=== PATIENT | female | born 1965 | race Caucasian/White ===

== ENCOUNTER 2017-06-21 18:19 | Emergency (ER) | payer OTHER ==
[~2017-06-21] VITALS: Ht 165.1 cm; Wt 131.1 kg
--- NOTE | ~2017-06-21 | US85 ---
[facility] A Service of [facility] RADIOLOGY TEXT RESULTS PATIENT: JEFFY ARTHUR LOCATION: [facility] : 63 UNIT #: [id number] AGE: [address]: Yg Ribeiro MD SEX: F ORDER DR: [id number] [facility] [address] [place], [place] [address] [id number] E MR#: [id number] Acc #: [id number] NAME: JEFFY ARTHUR : 1965 SEX: F STUDY DATE/TIME: 06/21/2017 20:17 UNIT: [facility] ROOM: STUDY DESCRIPTION: [facility] [employer] Attending Physician: Yg Ribeiro M.D. Ordering Physician: Yg Ribeiro M.D. Primary Care Physician: Primary Care Physician No MEDICAL IMAGING REPORT This report is preliminary unless electronic signature is present EXAM Ultrasound lower extremity veins unilateral or limited study. HISTORY Left lower extremity pain/swelling with short of air for 2 days. No blood thinners. Patient diabetic with hypertension. TECHNIQUE Venous ultrasound examination of the left lower extremity was performed using grayscale, spectral Doppler and color flow Doppler imaging. FINDINGS The examination is negative. There is no evidence of left lower extremity deep venous thrombus from the groin to the lower calf. Visualized greater saphenous vein is also patent. IMPRESSION Negative examination. No evidence of left lower extremity deep venous thrombosis. Dictated by... Jean Baarjas M.D. THIS IS AN ELECTRONICALLY VERIFIED REPORT Jean Barajas M.D. at 06/25/2017 10:43 AM FRIDA/shayy TD: 06/22/2017 00:16 JOB #: [id number] MEDICAL IMAGING REPORT Page 1 of 1 COPY
--- NOTE | ~2017-06-21 | EKG ---
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
[~2017-06-21 18:19] MED LIST: ACCUPRIL PO; ACETAMINOPHEN PO; ADVAIR 250-501 EAC1 IH; ADVAIR 2501 DISK W/D PO; ALBUTEROL MININEB NEB; ALBUTEROL17 GM INH; AMLODIPINE BESYL5 MG PO; BACLOFEN10 MG PO; BACTRIM DS TABL1 TA1 PO; CELEXA PO; CELEXA20 MG PO; COREG3.125 MG PO; DIFLUCAN PO; DUONEB 2.5-0.5 M3 ML NEB; FUROSEMIDE40 MG PO; GABAPENTIN300 M2 PO; GLUCOTROL PO; HUMALOG; HUMALOG100 U/ML SUBQ; HYDRALAZINE HCL25 MG PO; KLONOPIN1 MG PO; LASIX PO; LASIX20 MG PO; LEVAQUIN P500 MG/100 IV; LEVAQUIN PO; LEVAQUIN750 MG PO; LEVEMIR; LEVEMIR SUBQ; LEVEMIR100 UNITS/ SUBQ; LISINOPRIL PO; LORTAB 10-5001 EACH PO; LORTAB 10/500 T1 TAB PO; LOVENOX30 MG/0.3 INJ; MAXZIDE 75/50 T1 TAB PO; MEDROL DOSEPAK4 MG PO; METFORMIN PO; NAPROSYN375 MG PO; NEURONTIN300 MG PO; NO HOME MEDICATIONS; NO MEDICATIONS; NORCO 10/325 TA1 TAB PO; NORVASC PO; NOVOLOG100 UNITS/ SUBQ; OXYGEN 2LPM; PANTOPRAZOLE SO40 MG PO; PHOSLO667 MG PO; PREDNISONE PO; PRENATAL1 TA1 PO; PRILOSEC PO; PROAIR HFA8.5 GM IH; PROTONIX PO; PYRIDIUM100 MG PO; ROBITUSSIN A-C S5 ML PO; SOLU-MEDRO40 MG/1 ML IV; SYMBICORT INH; ZITHROMAX500 MG PO; ZOFRAN4 MG/5 ML IV
[2017-06-21 20:55] LABS: BASOPHIL% 0.7 % (0-2.5); EOSINOPHIL# 0.1 X10e3 (0-0.7); EOSINOPHIL% 2.3 % (0.0-7.0); HEMATOCRIT 46.8 % (35.0-45.0); HEMOGLOBIN 15.8 gm/dL (12.0-16.0); LYMPHOCYTE# 1.6 X10e3 (1.0-3.5); LYMPHOCYTE% 25.6 % (17.0-45.0); MEAN CELL VOLUME 103.6 FL (83-96); MEAN CORPUSCULAR HGB CONC 33.8 g/dL (30-36); MEAN PLATELET VOLUME 10.1 FL (6.5-11.5); MONOCYTE% 15.6 % (3.0-12.0); NEUTROPHIL# 3.5 X10e3 (1.5-7.1); NEUTROPHIL% 55.8 % (40-75); RED BLOOD COUNT 4.52 X10e (3.90-5.30); RED CELL DISTRIBUTION WIDTH 15.3 % (11.0-15.5); WHITE BLOOD COUNT 6.2 X10e3 (4.0-10.5)
[2017-06-21 21:11] LABS: DIFF IND YES; PLATELET COUNT 78 X10e3 (140-420)
[2017-06-21 21:13] LABS: PLATELET ESTIMATE NORMAL (NORMAL)
[2017-06-21 21:20] LABS: ALBUMIN SERUM 2.8 g/dL (3.5-5.0); BILIRUBIN, DIRECT 0.5 mg/dL (0.0-0.2); BILIRUBIN,INDIRECT 1.3 mg/dL (0.0-0.9); BILIRUBIN,TOTAL 1.8 mg/dL (0.2-2.0); BUN/CREATININE RATIO 11.11; CALCIUM SERUM 8.6 mg/dL (8.4-10.2); CREATININE SERUM 0.9 mg/dL (0.6-1.4); GLOM FILT RATE Estimated 73.6 mL/min (>60); POTASSIUM 3.8 mmol/L (3.5-5.1); PROTEIN TOTAL SERUM 6.7 g/dL (6.0-8.3)
[2017-06-21 21:32] LABS: POC - CKMB <1.0 ng/mL (0.0-7.9); POC - TROPONIN <0.05 ng/mL (<=0.05)
[2017-06-21 21:45] LABS: POC - CKMB <1.0 ng/mL (0.0-7.9); POC - TROPONIN <0.05 ng/mL (<=0.05)
== END 2017-06-22 02:03 | disposition home or self-care (01) ==
LOC: CED 18:19
PROVIDERS: Emergency Medicine
DX: L03.116 Cellulitis of left lower limb (principal); E11.65 Type 2 diabetes mellitus with hyperglycemia; I11.0 Hypertensive heart disease with heart failure; I50.9 Heart failure, unspecified; K74.60 Unspecified cirrhosis of liver; F17.200 Nicotine dependence, unspecified, uncomplicated
CPT/HCPCS: 36415; 80048; 80076; 82553; 83605; 83880; 84484; 85025; 87040; 93005; 93971; 96361; 96365; 96366; 96367; 96375; 99285; J2270; J3370